=== PATIENT | female | born 2000 | race Caucasian/White ===

== ENCOUNTER 2025-04-14 18:16 | Outpatient (REF) | payer OTHER, SELFPAY ==
--- OUTSIDE RECORDS SUMMARY | 2025-04-14 11:00 | XMS_ITS | Encounter Summary ---
Author Organization [employer] Address [address] [facility] [address] [place] [address] Care Team Providers Care Trip Follower Name Role Phone Rica Morris MD Primary Care Pro vider Reason for Visit * Reason Comments pap Encounter Details Date Type Department Care Team (Latest Contact Info) Description 04/14/2025 11:00 AM EDT Procedure Visit [facility] [address] [place] [address] Sydni Seymour CNM [address] [place] [address] Cervical cancer screening (Primary Dx); Encntr screen for infections w sexl mode of transmiss; Dysmenorrhea Social History Tobacco Use Types Packs/Day Years Used Date Smoking Tobacco: Never Smokeless Tobacco: Never Tobacco Cessation:Counseling Given: Not Answered Alcohol Use Standard Drinks/Week Comments Yes 0 (1 standard drink = 0.6 oz pur e alcohol) social Depression Answer Date Recorded Patient Health Questionnaire-9 Score 0 03/20/2025 Patient Health Questionnaire-9 Score 0 03/20/2025 Last PHQ-9: Questionnaire Data Not on file 0 03/20/2025 Housing Stability Answer Date Recorded What is your housing situation today? I have amanda do 03/20/[address] you li ve. Do you have problems with any of the following? None of the above 03/20/2025 Food Insecurity Answer Date Recorded Within the past 12 months, y ou worried that your food would run out before you got money to buy more: Never True 03/20/2025 Within the past 12 months,th e food you bought just didn't last and you didn't have enough money to get more: Never True Transportation Answer Date Recorded In the past 12 months, has l ack of transportation kept you from medical appts, meetings, work or from getting things needed for daily living? No 03/20/2025 Utilities Answer Date Recorded In the past 12 months, has t he electric, gas, oil or water company threatened to shut off services in your home? No 03/20/2025 Depression Answer Date Recorded Patient Health Questionnaire-2 Score 0 03/20/2025 Internet Access Answer Date Recorded Internet Access Q1 Yes 03/20/2025 Internet Access Q2 Not on file 03/20/2025 Comments No Intention Date Recorded No desire to become (finding) 1 Sex and Gender Information Value Date Recorded Sex Assigned at Female 04/24/2022 10:27 AM EDT Legal Sex Female 10:27 AM EDT Gender Identity Female 04/24/2022 10:27 AM EDT Sexual Orientation Straight 04/24/2022 10 :27 AM EDT documented as of this encounter Last Filed Vital Signs Vital Sign Reading Time Taken Comments Blood Pressure 100/60 04/14/2025 11:09 AM EDT Pulse 65 04/14/2025 11:09 AM EDT Temperature 36.3 C (97.3 F) 04/14/2025 11:09 AM EDT Respiratory Rate 16 04/14/2025 11:09 AM EDT Oxygen Saturation 99% 04/14/2025 11:09 AM EDT Inhaled Oxygen Concentration - - Weight 54.6 kg (120 lb 6.4 oz) 04/14/2025 11:09 AM EDT Height - - Body Mass Index 22.2 03/20/2025 10:27 AM EDT documented in this encounter Progress Notes * Sydni Seymour CNM - 04/14/2025 11:00 AM EDT Subjective Patient ID: Angelica Whittington is a 24 y.o. female who presents for pap Serum STI labs ordered by PCP. No pap on file, initial pap today. Would like pap based STI testing. 1 AMAB partner x 6m, no safety concerns. Not planning in the next year. Happy with condoms. Notes about 50% of cycles with painful cramping which starts a few days prior to menses. Uses NSAIDS prn and heating pad which are somewhat helpful. Denies urinary or bowel symptoms with menses, denies pain with sex. Received HPV and HBV vaccine series. Review of Systems Genitourinary: Positive for menstrual problem. Negative for dyspareunia, dysuria, frequency, genital sores, hematuria, pelvic pain, urgency, vaginal bleeding, vaginal discharge and vaginal pain. No abnormal pap, no abnormal bleeding, no breast pain, no breast mass, no nipple discharge Objective BP 100/60 (BP Location: Left arm, Patient Position: Sitting, BP Cuff Size: Adult) Pulse 65 Temp97.3 ??F (36.3 ??C) (Oral) Resp 16 Wt 120 lb 6.4 oz (54.6 kg) LMP 04/07/2025 SpO2 99% BMI22.20 kg/m?? Physical Exam Buttonhole Maker present: declines wash operator. Constitutional: Appearance: Normal appearance. Genitourinary: General: Normal vulva. Labia: Right: No rash, tenderness, lesion or injury. Left: No rash, tenderness, lesion or injury. Vagina: Normal. No signs of injury and foreign body. No vaginal discharge, erythema, tenderness, bleeding or lesions. Cervix: No cervical motion tenderness, discharge, friability, lesion, erythema, cervical bleeding or eversion. Uterus: Normal. Not enlarged and not tender. Adnexa: Right adnexa normal and left adnexa normal. Right: No mass, tenderness or fullness. Left: No mass, tenderness or fullness. Comments: Scant blood in vagina Neurological: Mental Status: She is alert. Psychiatric: Mood and Affect: Mood normal. Behavior: Behavior normal. Assessment/Plan Diagnoses and all orders for this visit: Cervical cancer screening - Pap Smear Initial pap today. Reviewed indications for screening and usual followup. Will contact with results. Repeat 3y if normal. Reviewed that minor cellular changes are common, and if these are noted, we will repeat pap in 1y. Aware of EC and that condoms are available on site. Encntr screen for infections w sexl mode of transmiss - STI testing add on (NG, CT, Trich) Pap based STI testing sent. Will contact with results. Dysmenorrhea Reviewed treatment options. Not interested in hormonal contraception. Will use cyclical NSAIDS as rx'd. Let me know if not helpful or if symptoms worsen. Other orders - ibuprofen 600 MG tablet; 1 tablet every 8 hours with food x 5-7 days for menstrual cramps. documented in this encounter Plan of Treatment Upcoming Encounters Date Type Department Care Team (Late st Contact Info) Description 06/04/2025 11:15 AM EST Office Visit [facility] [address] [place] [address] Rica Morris MD [address] [place] [address] Scheduled Orders Name Type Priority Associated Diagnoses Orde r Schedule Pap Smear Pathology and Cytology Routine Cervical cancer screening Ordered: 04/14/2025 STI testing add on (NG, CT, Trich) Pathology and Cytology Routine Encntr screen for infections w sexl mode of transmiss Ordered: 04/14/2025 documented as of this encounter Visit Diagnoses Diagnosis Cervical cancer screening- Primary Screening for malignant neoplasm of the cervix Encntr screen for infections w sexl mode of transmiss Dysmenorrhea documented in this encounter Additional Health Concerns Assessment Noted Time PHQ-9 Depression Total Score: 0 03/20/20 25 10:28 AM EDT documented as of this encounter Care Teams Trip Follower Relationship Specialty Start Date End Date Rica Morris MD [address] [place] [phone] PCP - General Internal Medicine 11/21/23 documented as of this encounter
--- OUTSIDE RECORDS SUMMARY | 2025-04-14 21:21 | XMS_ITS | Encounter Summary ---
Author Organization [facility] Address [address] [place] [address] Phone Care Team Providers Care Enterprise Resource Analyst Name Role Phone Steven Harding MD Primary Care Provider [phone] Encounter Details Date Type Department Care Team (Late st Contact Info) Description 01/07/2014 Documentation [facility] [place] [address] [place] [address] Family Medicine, Physician [address] [place], [place] [phone] Social History Tobacco Use Types Packs/Day Years Used Date Smoking Tobacco: Never Assessed Comments Unknown Sex and Gender Information Value Date Recorded Sex Assigned at Not on file Legal Sex Female 4:52 PM EDT Gender Identity Not on file Sexual Orientation Not on file documented as of this encounter Plan of Treatment Not on file documented as of this encounter Visit Diagnoses Not on filedocumented in this encounter Care Teams Enterprise Resource Analyst Relationship Specialty Start Date End Date Steven Harding MD [address] [place] [address] PCP - General 02/02/17 08/02/22 documented as of this encounter
--- OUTSIDE RECORDS SUMMARY | 2025-04-14 21:21 | XMS_ITS | Clinical Summary ---
Author Organization [facility] Address [address] [place] [address] Phone Care Team Providers Care Superintendent Radio Communications Name Role Phone Unavailable Primary Care Provider Unavailabl e Immunizations Immunization Administration Dates Next Due DTaP 5 10/26/2006, 4,04/16/2003, 003,2002 HPV, Quadrivalent 02/13/2014,01/06/2014 Hep A, ped/adol 02/13/2014,12/01/2010 Hep B, ped/adol 04/16/2003,2002,2002 Hib (HbOC) 01/14/2004, 3,02/11/2003, 003 IPV 10/26/2006, 4,02/11/2003, 003 MMR 10/14/2003 MMRV 10/26/2006 Meningococcal Conj (Menactra) MCV4P 01/06/2014 Pneumococcal Conjugate 04/12/2004,2002,02/11/2003, 003 Tdap 01/06/2014 Varicella 10/14/2003 Family History Relation Name Status Comments Father Alive Father: Alive a nd well Maternal Grandmother Materna l grandmother: Diabetes mellitus Mother Alive Mother: Asthma / obesity Other 1 aunt: Asthma Other 2 No family histo ry of *CVA/Stroke, Family history of Thyroid disease, Family history of *Dental caries, No family history of *Sudden /ND under 55, Family history of *Heart Disease, No family history of *Thrombophilia, Family history of Cancer - skin , stomach Sister Alive Sister: Alive a nd well Social History Tobacco Use Types Packs/Day Years Used Date Smoking Tobacco: Never Assessed Comments Unknown Sex and Gender Information Value Date Recorded Sex Assigned at Not on file Legal Sex Female 4:52 PM EDT Gender Identity Not on file Sexual Orientation Not on file Last Filed Vital Signs Vital Sign Reading Time Taken Comments Blood Pressure 111/70 01/06/2014 12:00 AM EDT Pulse 72 01/06/2014 12:00 AM EDT Temperature 36.1 C (96.9 F) 10/28/2012 12:00 AM EDT Respiratory Rate - - Oxygen Saturation - - Inhaled Oxygen Concentration - - Weight 41.3 kg (91 lb) 01/06/2014 12:00 AM EDT Height 142.5 cm (4' 8.1 ) 01/06/2014 12:00 AM ED T Body Mass Index 20.33 01/06/2014 12:00 AM EDT Plan of Treatment Health Maintenance Due Date Last Done Comments HPV Vaccines (3 - 2-dose series) 07/09/2014 02/13/2014, 01/06/2014 Men B Vaccine (1 of 2 - Standard) 2018 DTaP,Tdap,and Td Vaccines (7 - Td or Tdap) 01/07/2024 01/06/2014, 10/26/2006, 01/14/2004, Additional history exists Influenza Vaccines (#1) 2025 COVID-19 Vaccine ( season) 2025 Hepatitis B Vaccines Completed 04/16/2003, 2002, 2002 HIB Vaccines Completed 01/14/2004, 03/26, 02/11/2003, Additional history exists Pneumococcal Vaccine Completed 04/12/2004, 04/16/2003, 02/11/2003, Additional history exists IPV Vaccines Completed 10/26/2006, 09/24, 02/11/2003, Additional history exists MMR Vaccines Completed 10/26/2006, 10/14/2003 Varicella Vaccines Completed 10/26/2006, 10/14/2003 Meningococcal Vaccine Aged Out 01/06/2014 No sweta jarad eligible based on patient's age to complete this topic Hepatitis A Vaccines Completed 02/13/2014, 12/02/19 11
--- OUTSIDE RECORDS SUMMARY | 2025-04-14 21:21 | XMS_ITS | Encounter Summary ---
Author Organization [facility] Address [address] [place] [address] Phone Care Team Providers Care Tape Rules Printing Machine Operator Name Role Phone Steven Harding MD Primary Care Provider [phone] Encounter Details Date Type Department Care Team (Late st Contact Info) Description 02/08/2017 Conversion Encounter [facility] [address] [place] [address] Social History Tobacco Use Types Packs/Day Years [...] on filedocumented in this encounter Care Teams Tape Rules Printing Machine Operator Relationship Specialty Start Date End Date Steven Harding MD [address] [place] [address] PCP - General 02/02/17 08/02/22 documented as of this encounter
--- OUTSIDE RECORDS SUMMARY | 2025-04-14 21:21 | XMS_ITS | Encounter Summary ---
Author Organization [facility] Address [address] [place] [address] Phone Care Team Providers Care Remote Mortgage Underwriter Name Role Phone Steven Harding MD Primary Care Provider [phone] Encounter Details Date Type Department Care Team (Late st Contact Info) Description 02/16/2014 Documentation [facility] [place] Medicine [address] [place] [address] Family Medicine, Physician [address] [place], [place] [phone] Social History Tobacco Use Types Packs/Day Years [...] on filedocumented in this encounter Care Teams Remote Mortgage Underwriter Relationship Specialty Start Date End Date Steven Harding MD [address] [place] [phone] PCP - General 02/02/17 08/02/22 documented as of this encounter
--- OUTSIDE RECORDS SUMMARY | 2025-04-14 21:21 | XMS_ITS | Encounter Summary ---
Author Organization [facility] Address [address] [place] [address] Phone Care Team Providers Care Director Custom Name Role Phone Steven Harding MD Primary Care Provider [phone] Encounter Details Date Type Department Care Team (Late st Contact Info) Description 12/02/2010 Documentation [facility] [place] [address] [place] [address] Family Medicine, Physician [address] [place], [place] [phone] Social History Tobacco Use Types Packs/Day Years [...] on filedocumented in this encounter Care Teams Director Custom Relationship Specialty Start Date End Date Steven Harding MD [address] [place] [phone] PCP - General 02/02/17 08/02/22 documented as of this encounter
--- OUTSIDE RECORDS SUMMARY | 2025-04-14 21:21 | XMS_ITS | Encounter Summary ---
Author Organization [facility] Address [address] [place] [address] Phone Care Team Providers Care Vp Production Name Role Phone Steven Harding MD Primary Care Provider [phone] Encounter Details Date Type Department Care Team (Late st Contact Info) Description 11/18/2010 [place]ation [facility] [place] [address] [place] [address] Family Medicine, Physician [address] [place], [place] [phone] Social History Tobacco Use Types Packs/Day Years [...] on filedocumented in this encounter Care Teams Vp Production Relationship Specialty Start Date End Date Steven Harding MD [address] [place] [address] PCP - General 02/02/17 08/02/22 documented as of this encounter
--- OUTSIDE RECORDS SUMMARY | 2025-04-14 21:21 | XMS_ITS | Encounter Summary ---
Author Organization [facility] Address [address] [place] [address] Phone Care Team Providers Care Registered Nurse First Assistant Name Role Phone Steven Harding MD Primary Care Provider [phone] Encounter Details Date Type Department Care Team (Late st Contact Info) Description 12/02/2010 [place]ation [facility] [place] [address] [place] [address] Family Medicine, Physician [address] [place], [place] [phone] Social History Tobacco Use Types Packs/Day Years [...] on filedocumented in this encounter Care Teams Registered Nurse First Assistant Relationship Specialty Start Date End Date Steven Harding MD [address] [place] [phone] PCP - General 02/02/17 08/02/22 documented as of this encounter
--- OUTSIDE RECORDS SUMMARY | 2025-04-14 21:21 | XMS_ITS | Encounter Summary ---
Author Organization [facility] Address [address] [place] [address] Phone Care Team Providers Care Cylinder Grinder Name Role Phone Steven Harding MD Primary Care Provider [phone] Encounter Details Date Type Department Care Team (Late st Contact Info) Description 04/19/2011 Documentation [facility] [place] [address] [place] [address] Family Medicine, Physician [address] [place], [place] [phone] Social History Tobacco Use Types Packs/Day Years [...] on filedocumented in this encounter Care Teams Cylinder Grinder Relationship Specialty Start Date End Date Steven Harding MD [address] [place] [phone] PCP - General 02/02/17 08/02/22 documented as of this encounter
--- OUTSIDE RECORDS SUMMARY | 2025-04-14 21:21 | XMS_ITS | Encounter Summary ---
Author Organization [facility] Address [address] [place] [address] Phone Care Team Providers Care Network Consultant Name Role Phone Steven Harding MD Primary Care Provider [phone] Encounter Details Date Type Department Care Team (Late st Contact Info) Description 01/07/2014 [place] [facility] [place] [address] [place] [address] Family Medicine, Physician [address] [place], [place] [phone] Social History Tobacco Use Types Packs/Day Years [...] on filedocumented in this encounter Care Teams Network Consultant Relationship Specialty Start Date End Date Steven Harding MD [address] [place] [phone] PCP - General 02/02/17 08/02/22 documented as of this encounter
--- OUTSIDE RECORDS SUMMARY | 2025-04-14 21:21 | XMS_ITS | Clinical Summary ---
Author Organization [employer] Address [address] [place] [address] [address] [place] [address] Care Team Providers Care Woven Paper Hat Mender Name Role Phone Rica Morris MD Primary Care Pro vider Allergies No known active allergies Medications ibuprofen 600 MG tablet 1 tablet every 8 hours with food x 5-7 days for menstrual cramps. 84 tablet Active Active Problems Problem Noted Date Diagnosed Date Health care maintenance 03/20/2025 Myopia 12/16/2015 Encounters Date Type Department Care Team Description 04/14/2025 11:00 AM EDT Procedure Visit [address] [address] Sydni Seymour CNM Cervical cancer screening (Primary Dx); Encntr screen for infections w sexl mode of transmiss; Dysmenorrhea 04/14/2025 Travel 04/13/[address] [address] Sydni Seymour CNM chart prep 03/20/2025 10:15 AM EDT Office Visit [address] [address] Rica Morris MD Annual physical exam (Primary Dx); Encounter for immunization; Health care maintenance 03/20/[address] [address] Rica Morris MD Insurance 03/20/2025 Travel 03/13/2025 Patient Outreach [address] [address] Rica Morris MD Pre-visit Planning ([facility] screening unable to complete. ) from Last 3 Months Immunizations Immunization Administration Dates Next Due DTaP 10/26/2006, 4,04/16/2003,02/11 DTaP, 5 pertussis antigens 10/26/2006,,04/16/2003,02/11,2002 HPV 9-Valent 12/16/2015,02/13/2014,01/06/2014 HPV, Quadrivalent 02/13/2014,01/06/2014 Hep A, ped/adol, 2 dose 02/13/2014,12/01/2010 Hep B, Adolescent or Pediatric 0,04/16/2003,2002,10/10 HiB, unspecified 01/14/2004,04/16/2003, 3 Hib (HbOC) 01/14/2004, 3,02/11/2003,12/17 Hib (PRP-T) 2002 IPV 10/26/2006, 4,02/11/2003,12/17 Influenza, seasonal, injecta ble, preservative free 03/20/2025 MMR 10/26/2006,10/14/2003 MMRV 10/26/2006 Meningococcal MCV4P [id number] 01/06/2019,01/07/20 14 Pneumococcal Conjugate PCV 13 04/12/2004 ,04/16/2003,02/11/2003,12/15 Pneumococcal Conjugate PCV 7 04/12/2004, 04/16/2003,02/11/2003,12/15 Tdap 03/20/2025,01/06/2014 Varicella 10/14/2003 Family History Medical History Relation Name Comments DM2 Maternal Grandmother DM2 Mother DM2 Mother's Sister Relation Name Status Comments Maternal Grandmother Mother Mother's Sister Social History Tobacco Use Types Packs/Day Years [...] your housing situation today? I have amanda lei 03/20/[address] you li [...] Orientation Straight 04/24/2022 10 :27 AM EDT Last Filed Vital Signs Vital Sign Reading Time Taken Comments Blood Pressure 100/60 04/14/2025 11:09 AM EDT Pulse 65 04/14/2025 11:09 AM EDT Temperature 36.3 C (97.3 F) 04/14/2025 11:09 AM EDT Respiratory Rate 16 04/14/2025 11:09 AM EDT Oxygen Saturation 99% 04/14/2025 11:09 AM EDT Inhaled Oxygen Concentration - - Weight 54.6 kg (120 lb 6.4 oz) 04/14/2025 11:09 AM EDT Height 156.8 cm (5' 1.75 ) 03/20/2025 10:27 AM E DT Body Mass Index 22.2 03/20/2025 10:27 AM EDT Plan of Treatment Upcoming Encounters Date Type Department Care Team (Late st Contact Info) Description 06/04/2025 11:15 AM EST Office Visit [facility] [address] [place] [address] Rica Morris MD [address] [place], [place] [phone] Health Maintenance Due Date Last Done Comments Chlamydia and Gonorrhea Screening 2002 HIV Screening 2002 Meningococcal B Vaccine (1 of 2 - Standard) 2018 Hepatitis C Screening 2020 Pap Smear 10/11/2023 COVID-19 Vaccine (3 - season) 2025 11/16/2020, 10/19/2020 Alcohol/Substance Use Screening 03/20/2026 03/20/2025 Depression Screening 03/20/2026 03/20/2025, 03/20/20 25 Disability Screening 03/20/2026 03/20/2025 SDOH Screening 03/20/2026 03/20/2025 Family Planning (PISQ) 04/14/2026 04/14/2025 Tobacco Screening 04/14/2026 04/14/2025 DTaP/Tdap/Td Vaccines (8 - Td or Tdap) 03/20/2035 03/20/2025, 01/06/2014, 10/26/2006, Additional history exists Zoster Vaccines (1 of 2) 2052 RSV Patients and Patients Aged 60 years or older (1 - 1-dose 75+ series) 2077 HIB Vaccines Completed 01/14/2004, 12/24, 04/16/2003, Additional history exists Pneumococcal Vaccine: Pediatrics (0 to 5 Years) and At-Risk Patients (6 to 49) Years Aged Out 04/12/2004, 04/12/2004, 04/16/2003, Additional history exists No longer eligible based on patient's age to complete this topic IPV Vaccines Completed 10/26/2006, 09/24, 02/11/2003, Additional history exists Hepatitis B Vaccines Completed 04/16/2010, 04/16/2003, 2002, Additional history exists Hepatitis A Vaccines Completed 02/13/2014, 12/02/19 11 HPV Vaccines Completed 12/16/2015, 01/24, 02/13/2014, Additional history exists Meningococcal Vaccine Completed 01/06/2019, 014 Influenza Vaccine Completed 03/20/2025 RSV under 20 months Aged Out No longe r eligible based on patient's age to complete this topic Rotavirus Vaccines Aged Out No longer eligible based on patient's age to complete this topic Insurance [facility] Care Teams Woven Paper Hat Mender Relationship Specialty Start Date End Date Rica Morris MD [address] [place] [phone] PCP - General Internal Medicine 11/21/23
--- OUTSIDE RECORDS SUMMARY | 2025-04-14 21:21 | XMS_ITS | Encounter Summary ---
Author Organization [employer] Address [address] [facility] [address] [place] [address] Care Team Providers Care Harness Cleaner Name Role Phone Rica Morris MD Primary Care Pro vider Encounter Details Date Type Department Care Team (Latest Contact Info) Description 04/14/2025 Travel Social History Tobacco Use Types Packs/Day Years Used Date Smoking Tobacco: Never Smokeless Tobacco: Never Alcohol Use Standard Drinks/Week Comments Yes 0 [...] Q2 Not on file 03/20/2025 Comments No Sex and Gender Information Value Date Recorded Sex Assigned at Female 04/24/2022 10:27 AM EDT Legal Sex Female 10:27 AM EDT Gender Identity Female 04/24/2022 10:27 AM EDT Sexual Orientation Straight 04/24/2022 10 :27 AM EDT documented as of this encounter Plan of Treatment Upcoming Encounters Date Type Department Care Team (Late st Contact Info) Description 06/04/2025 11:15 AM EST Office Visit [facility] [address] [place] [phone] Rica Morris MD [address] [place] [phone] documented as of this encounter Visit Diagnoses Not on filedocumented in this encounter Additional Health Concerns Assessment Noted Time PHQ-9 Depression Total Score: 0 03/20/20 25 10:28 AM EDT documented as of this encounter Care Teams Harness Cleaner Relationship Specialty Start Date End Date Rica Morris MD [address] [place] [phone] PCP - General Internal Medicine 11/21/23 documented as of this encounter
--- OUTSIDE RECORDS SUMMARY | 2025-04-14 21:21 | XMS_ITS | Encounter Summary ---
Author Organization [facility] Address [address] [place] [address] Phone Care Team Providers Care Finance Associate Name Role Phone Steven Harding MD Primary Care Provider [phone] Encounter Details Date Type Department Care Team (Late st Contact Info) Description 01/03/2013 Documentation [facility] [place] [address] [place] [address] Family Medicine, Physician [address] [place], [place] [phone] Social History Tobacco Use Types Packs/Day Years [...] on filedocumented in this encounter Care Teams Finance Associate Relationship Specialty Start Date End Date Steven Harding MD [address] [place] [id number] PCP - General 02/02/17 08/02/22 documented as of this encounter
--- OUTSIDE RECORDS SUMMARY | 2025-04-14 21:21 | XMS_ITS | Encounter Summary ---
Author Organization [facility] Address [address] [place] [address] Phone Care Team Providers Care Orthopedic Shoe Fitter Name Role Phone Steven Harding MD Primary Care Provider [phone] Encounter Details Date Type Department Care Team (Late st Contact Info) Description 04/12/2011 [place]ation [facility] [place] [address] [place] [address] Family Medicine, Physician [address] [place], [place] [phone] Social History Tobacco Use Types Packs/Day Years [...] on filedocumented in this encounter Care Teams Orthopedic Shoe Fitter Relationship Specialty Start Date End Date Steven Harding MD [address] [place] [id number] PCP - General 02/02/17 08/02/22 documented as of this encounter
--- OUTSIDE RECORDS SUMMARY | 2025-04-14 21:21 | XMS_ITS | Encounter Summary ---
Author Organization [facility] Address [address] [place] [address] Phone Care Team Providers Care Plant Wrapper Name Role Phone Steven Harding MD Primary Care Provider [phone] Encounter Details Date Type Department Care Team (Late st Contact Info) Description 12/26/2011 Documentation [facility] [place] [address] [place] [address] Family Medicine, Physician [address] [place], [place] [phone] Social History Tobacco Use Types Packs/Day Years [...] on filedocumented in this encounter Care Teams Plant Wrapper Relationship Specialty Start Date End Date Steven Harding MD [address] [place] [phone] PCP - General 02/02/17 08/02/22 documented as of this encounter
--- OUTSIDE RECORDS SUMMARY | 2025-04-14 21:21 | XMS_ITS | Encounter Summary ---
Author Organization [employer] Address [address] [facility] [address] [place] [address] Care Team Providers Care Director Water And Waste Services Name Role Phone Rica [place] MD Primary Care Pro vider Reason for Visit * Reason Onset Date Comments chart prep 04/13/2025 Encounter Details Date Type Department Care Team ([facility] st Contact Info) Description 04/13/2025 Telephone [facility] MEDICINE [address] [place] [address] Sydni Seymour, RADHA [address] [place] [address] chart prep Social History Tobacco Use Types Packs/Day Years [...] Access Q2 Not on file 03/20/2025 Comments Unknown Sex and Gender Information Value Date Recorded Sex Assigned at Female 04/24/2022 10:27 AM EDT Legal Sex Female 10:27 AM EDT Gender Identity Female 04/24/2022 10:27 AM EDT Sexual Orientation Straight 04/24/2022 10 :27 AM EDT documented as of this encounter Miscellaneous Notes * Telephone Encounter - Terra Iniguez [place] - 04/13/2025 9:49 AM EDT Chart Prep Labs: not applicable Images: not applicable Referrals: not applicable Vaccines due: Covid and MCV4 Screenings: HIV screening Overdue care gaps: Oral health screening documented in this encounter Plan of Treatment Upcoming Encounters Date Type Department Care Team (Late st Contact Info) Description 06/04/2025 11:15 AM EST Office Visit [facility] MEDICINE [address] [place] [id number] Rica [place] MD [address] [place] [phone] documented as of this encounter Visit Diagnoses Not on filedocumented in this encounter Additional Health Concerns Assessment Noted Time PHQ-9 Depression Total Score: 0 03/20/20 10:28 AM EDT documented as of this encounter Care Teams Director Water And Waste Services Relationship Specialty Start Date End Date Rica [place] MD [address] [place] [phone] PCP - General Internal Medicine 11/21/23 documented as of this encounter
--- OUTSIDE RECORDS SUMMARY | 2025-04-14 21:21 | XMS_ITS | Encounter Summary ---
Author Organization [facility] Address [address] [place] [address] Phone Care Team Providers Care Metal Trim Erector Name Role Phone Steven Harding MD Primary Care Provider [phone] Encounter Details Date Type Department Care Team (Late st Contact Info) Description 12/26/2011 [place] [facility] [place] [address] [place] [address] Family Medicine, Physician [address] [place], [place] [phone] Social History Tobacco Use Types Packs/Day Years [...] on filedocumented in this encounter Care Teams Metal Trim Erector Relationship Specialty Start Date End Date Steven Harding MD [address] [place] [phone] PCP - General 02/02/17 08/02/22 documented as of this encounter
--- OUTSIDE RECORDS SUMMARY | 2025-04-14 21:21 | XMS_ITS | Encounter Summary ---
Author Organization [facility] Address [address] [place] [address] Phone Care Team Providers Care Avian Keeper Name Role Phone Steven Harding MD Primary Care Provider [phone] Encounter Details Date Type Department Care Team (Late st Contact Info) Description 03/14/2011 [place]ation [facility] [place] [address] [place] [address] Family Medicine, Physician [address] [place], [place] [phone] Social History Tobacco Use Types Packs/Day Years [...] on filedocumented in this encounter Care Teams Avian Keeper Relationship Specialty Start Date End Date Steven Harding MD [address] [place] [phone] PCP - General 02/02/17 08/02/22 documented as of this encounter
[2025-04-16 14:42] LABS: C. trachomatis RNA TMA NOT DETECTED (NOT DETECTED); N. gonorrhoeae RNA TMA NOT DETECTED (NOT DETECTED); Trichomonas (NAAT) NOT DETECTED (NOT DETECTED)
== END 2025-04-14 18:17 | disposition home or self-care (01) ==
LOC: HO.HHCLNP 18:16
PROVIDERS: Visit Provider Advanced Practice Midwife
DX: Z12.4 Encounter for screening for malignant neoplasm of cervix (principal); Z20.2 Contact with and (suspected) exposure to infections with a predominantly sexual mode of transmission
CPT/HCPCS: 87491; 87591; 87661; 88175